=== PATIENT | female | born 1980 | race African-American/Black ===

== ENCOUNTER 2021-02-04 08:44 | Emergency (ER) | payer MEDICAID ==
[~2021-02-04] VITALS: Ht 172.7 cm; Wt 80.0 kg
[2021-02-04] MEDS ORDERED: ONDANSETRON HCL 4MG/2ML INJ IV STA (08:52)
[2021-02-04] MEDS ORDERED: ACETAMINOPHEN 325MG TABLET PO STA (08:52)
[2021-02-04] MEDS ORDERED: SODIUM CHLORIDE 0.9% 1,000 ML IV ONE (09:00)
[2021-02-04 09:12] LABS: BASOPHILS % 0.4 % (0.0-2.0); EOSINOPHILS % 1.2 % (0.0-5.0); HEMATOCRIT. 38.9 % (36.0-48.0); HEMOGLOBIN. 12.8 g/dL (12.0-16.0); MEAN CORPUSCULAR HEMOGLOBIN 27.6 pg (28.0-32.0); MEAN CORPUSCULAR VOLUME 83.9 fL (81.0-99.0); MEAN PLATELET VOLUME 7.1 fl (7.4-10.4); MONOCYTES % 8.3 % (2.0-8.0); NEUTROPHILS % 57.1 % (40.0-76.0); PLATELET 421 x1000/uL (130-400); RED BLOOD CELL COUNT 4.64 mill/uL (4.2-5.4); RED CELL DISTRIBUTION WIDTH 14.8 % (11.6-14.6)
[2021-02-04 09:19] LABS: CHLORIDE 104 mEq/L (98-107)
[2021-02-04 09:22] LABS: HCG SCREEN NEGATIVE
[2021-02-04 09:24] LABS: ETHANOL BLOOD < 10 mg/dL
[2021-02-04 09:25] LABS: PROTHROMBIN TIME 10.9 sec (9.6-11.0)
[2021-02-04 09:40] LABS: CLARITY URINE CLOUDY (CLEAR); COLOR URINE DARK YELLOW (YELLOW); KETONES URINE TRACE (NEGATIVE); LEUKOCYTE ESTERASE URINE NEGATIVE (NEGATIVE); NITRITE URINE NEGATIVE (NEGATIVE); OCCULT BLOOD URINE NEGATIVE (NEGATIVE); PROTEIN URINE 1+ (NEGATIVE); SPECIFIC GRAVITY URINE 1.028 (1.005-1.030)
[2021-02-04 09:50] LABS: OPIATES URINE SCREEN NEGATIVE (NEGATIVE)
[2021-02-04 09:51] LABS: *BARBITURATES SCREEN URINE NEGATIVE (NEGATIVE); *BENZODIAZEPINES SCREEN URINE NEGATIVE (NEGATIVE); METHADONE URINE SCREEN NEGATIVE (NEGATIVE); PHENCYCLIDINE URINE SCREEN NEGATIVE (NEGATIVE)
[2021-02-04 09:55] LABS: *AMPHETAMINES SCREEN URINE PRESUMTIVE POSITIVE (NEGATIVE); *COCAINE SCREEN URINE PRESUMTIVE POSITIVE (NEGATIVE); CANNABINOID URINE SCREEN PRESUMTIVE POSITIVE (NEGATIVE)
[2021-02-04] MEDS ORDERED: POTASSIUM CHLORIDE 20MEQ TABLET SR PO NR (10:30)
[2021-02-04 10:56] VITALS: BP 142/63
[2021-02-04] MEDS ORDERED: POTA20TA82 MT (11:42)
[2021-02-04] MEDS ORDERED: ACET-2708 MT (11:42)
== END 2021-02-04 12:00 | disposition home or self-care (01) ==
LOC: ER 08:56
DX: R10.84 Generalized abdominal pain (principal); E87.6 Hypokalemia; N83.202 Unspecified ovarian cyst, left side; M47.897 Other spondylosis, lumbosacral region
CPT/HCPCS: 36415; 74176; 76830; 76856; 80053; 80305; 80320; 81003; 81025; 83605; 83690; 84703; 85025; 85610; 96361; 96374; 99284; J2405; J7030; G0480

== ENCOUNTER 2022-10-04 17:41 | Emergency (ER) | payer MEDICAID, OTHER ==
[~2022-10-04] VITALS: Ht 167.6 cm; Wt 59.0 kg
[~2022-10-04 17:41] MED LIST: ACET-2708 MT; POTA-205 MT
[2022-10-04 17:45] VITALS: O2SAT 100
[2022-10-04] MEDS ORDERED: FAMOTIDINE 20MG/2ML VIAL IV ONE (18:15)
[2022-10-04] MEDS ORDERED: ONDANSETRON HCL 4MG/2ML INJ IV ONE (18:15)
[2022-10-04] MEDS ORDERED: SODIUM CHLORIDE 0.9% 1,000 ML IV ONE (18:15)
[2022-10-04 19:32] LABS: BASOPHILS % 0.5 % (0.0-2.0); DIFFERENTIAL COMMENT 0; EOSINOPHILS % 0.5 % (0.0-5.0); LYMPHOCYTES % 30.5 % (20.0-50.0); MEAN CORPUSCULAR HEMOGLOBIN 22.7 pg (28.0-32.0); MEAN CORPUSCULAR HGB CONC 31.3 g/dL (31.0-37.0); MEAN CORPUSCULAR VOLUME 72.6 fL (81.0-99.0); MEAN PLATELET VOLUME 7.1 fl (7.4-10.4); MONOCYTES % 5.1 % (2.0-8.0); NEUTROPHILS % 63.4 % (40.0-76.0); PLATELET 477 x1000/uL (130-400); RED BLOOD CELL COUNT 2.85 mill/uL (4.2-5.4); RED CELL DISTRIBUTION WIDTH 19.6 % (11.6-14.6)
[2022-10-04 19:41] LABS: CHLORIDE 101 mEq/L (98-107); HEMATOCRIT. 20.7 % (36.0-48.0); HEMOGLOBIN. 6.5 g/dL (12.0-16.0); INDEX HEMOLYSI 1 (1-3); INDEX ICTERIC 1 (1-4); INDEX LIPEMIC 1 (1-3); POTASSIUM 3.4 mEq/L (3.5-5.1); SODIUM 135 mEq/L (136-145)
[2022-10-04 19:51] LABS: ALANINE AMINOTRANSFERASE 17 IU/L (13-61); ASPARTATE AMINOTRANSFERASE 13 IU/L (15-37); BILIRUBIN TOTAL 0.2 mg/dL (0.1-1.0); CALCIUM 8.5 mg/dL (8.5-10.1); CARBON DIOXIDE 30 mEq/L (21-32); CREATININE 0.8 mg/dL (0.6-1.3); GLUCOSE 117 mg/dL (70-105); PROTEIN TOTAL 6.8 g/dL (6.0-8.3); UREA NITROGEN BLOOD 7 mg/dL (7-21)
[2022-10-04] MEDS ORDERED: PANTOPRAZOLE SODIUM 40 MG/VIAL IV NR (20:00)
[2022-10-04 20:02] LABS: HCG SCREEN NEGATIVE
[2022-10-04 20:36] LABS: CLARITY URINE CLOUDY (CLEAR); COLOR URINE YELLOW (YELLOW); GLUCOSE URINE NEGATIVE (NEGATIVE); KETONES URINE NEGATIVE (NEGATIVE); LEUKOCYTE ESTERASE URINE 2+ (NEGATIVE); NITRITE URINE NEGATIVE (NEGATIVE); OCCULT BLOOD URINE NEGATIVE (NEGATIVE); PH URINE 7.5 (4.5-8.0); PROTEIN URINE TRACE (NEGATIVE); SPECIFIC GRAVITY URINE 1.013 (1.005-1.030)
[2022-10-04 20:39] LABS: RBC URINE 0-2 /hpf (0-2); SQUAMOUS EPITHELIAL CELL URINE 2+ /lpf (RARE/1+); YEAST URINE NONE SEEN
[2022-10-04 20:52] LABS: BACTERIA URINE 1+; TRICHOMONAS URINE 1+
[2022-10-04 22:00] VITALS: TEMP 98.9
[2022-10-05 05:51] VITALS: BP 130/78; PULSE 88; RESP 18
== END 2022-10-05 06:23 | disposition short-term general hospital (02) ==
LOC: ER 17:41
DX: D64.9 Anemia, unspecified (principal); F12.90 Cannabis use, unspecified, uncomplicated; Z98.51 Tubal ligation status
CPT/HCPCS: 99285; 74177; 96365; 96366; 96375; 80053; 81003; 84703; 83690; 85025; 85044; 86850; 86900; 86901; 86920; 36415; J3490; J2405; C9113; J7030; 96372; P9016